=== PATIENT | female | born 1990 | race Caucasian/White ===

== ENCOUNTER → 2018-02-01 12:23 | Outpatient (CLI) | payer BC, SELFPAY ==
[2018-02-01 14:08] LABS: Free T3 2.7 pg/mL (2.18-3.98); Thyroid Stim Hormone (TSH) 4.79 uIU/mL (0.358-3.74)
== END ==
LOC: MFPLAB 12:23
PROVIDERS: Family Provider Family Medicine; PCP Family Medicine; Visit Provider Family Medicine
DX: E03.9 Hypothyroidism, unspecified (principal)
CPT/HCPCS: 36415; 84439; 84443; 84481

== ENCOUNTER 2021-11-14 14:18 | Emergency (ER) | payer BC, SELFPAY ==
[2021-11-14 14:19] VITALS: BP 136/90; PULSE 109; RESP 14; TEMP 36.2; O2SAT 100; BMI 27.3
--- NOTE | 2021-11-14 14:35 | EX.ED.DYSGE1 ---
HPI <KORY Leong - Last Filed: 11/14/21 18:47> History of Present Illness Chief Complaint: Abd Pain Narrative Narrative: 31-year-old female presents with left lower quadrant abdominal pain and diarrhea that started on 11/12. She states the pain is aching and is worse with eating. She has no fever, chills, nausea, or vomiting. She normally has 2-3 formed BMs a day but has had looser stools and sometimes has the urge to go but nothing comes out. Denies melena or hematochezia. She has no urinary symptoms. She was seen in urgent care and sent here for further evaluation. No abdominal surgical history. Of note she started Keflex for a forehead abscess a day prior to the onset of symptoms. PFSH <KORY Leong Last Filed: 11/14/21 18:47> [facility] Home Medications dextroamphetamine-amphetamine [Adderall 20 mg Tablet] 20 mg PO DAILY 07/18/17 [History Last Taken Unknown] fluoxetine 10 mg PO DAILY 07/18/17 [History Last Taken Unknown] levothyroxine 75 mcg PO DAILY 07/18/17 [History Last Taken Unknown] lorazepam 1 mg PO DAILY PRN PRN #10 tab 08/29/17 [Rx Last Taken Unknown] Allergy/AdvReac Type Severity Reaction Status Date / Time No Known Allergies Allergy Verified 11/14/21 14:21 Social History Smoking Status: Never smoker ROS <KORY Leong - Last Filed: 11/14/21 18:47> ROS ED ROS Narrative Constitutional: Negative for fever, chills, malaise. Eyes: Negative for visual change. ENT: Negative for sore throat, ear pain, rhinorrhea. CVS: Negative for palpitations, chest pain, syncope. Respiratory: Negative for shortness of breath, cough, orthopnea. GI: Positive for abdominal pain, diarrhea. Negative for nausea, vomiting, constipation, melena, hematochezia. : Negative for dysuria, hematuria or frequency. Neuro: Negative for headache, motor/sensory dysfunction. Skin: Negative for rash, abscess, or wound. Musc: Negative for joint pain, swelling, trauma. Heme: Negative for easy bruising, bleeding, lymphadenopathy. EXAM <KORY Leong Last Filed: 11/14/21 18:47> Physical Exam Narrative Exam Narrative: CONST: Patient sitting in no acute distress. EYES: Normal inspection. ENT: Normal inspection, moist mucous membranes. NECK: Normal inspection. RESP: No respiratory distress, CTAB. CVS: Regular rate and rhythm, no murmur, no gallop. ABD: Soft with mild tenderness in left lower quadrant, no guarding or rebound, nondistended, no hepatosplenomegaly. Back: Normal inspection, no CVA tenderness. SKIN: Color normal, no rash, warm, dry, intact. EXTREMITIES: Normal appearance, no pedal edema. NEURO: Oriented x4. PSYCH: Normal affect. Const Vital Signs: 11/14/21 14:19 11/14/21 16:24 11/14/21 18:40 Temperature 97.2 F L Temperature Source Temporal Pulse Rate 109 H 88 Respiratory Rate 14 14 Blood Pressure 136/90 H 116/74 Blood Pressure Mean 105 88 Pulse Ox 100 97 97 Oxygen Delivery Method Room Air Room Air Room Air <Dr. Martin Calzada MD - Last Filed: 11/14/21 14:49> Physical Exam Const Vital Signs: 11/14/21 14:19 11/14/21 16:24 11/14/21 18:40 Temperature 97.2 F L Temperature Source Temporal Pulse Rate 109 H 88 Respiratory Rate 14 14 Blood Pressure 136/90 H 116/74 Blood Pressure Mean 105 88 Pulse Ox 100 97 97 Oxygen Delivery Method Room Air Room Air Room Air MDM <KORY Leong - Last Filed: 11/14/21 18:47> [facility] Narrative Medical decision making narrative: Patient presents with abdominal pain and diarrhea that started after taking Keflex. She appears well and nontoxic. Afebrile and vital signs unremarkable. Her abdomen is soft with mild tenderness left lower quadrant but no peritoneal signs. Labs show white count of 17.6, BMP normal, urinalysis and hCG negative. Stool sample was sent for C. difficile testing but the lab states that has too much mucus. Unlikely C. difficile. Patient has only had 1 bowel movement while in the ER for several hours. She was taking the Keflex for an abscess on her face which looks like it has resolved and there is no longer cellulitis. I instructed her to stop the antibiotics as it was likely the cause of the diarrhea. She was agreeable and discharged in stable condition Lab Data Labs: Laboratory Results - last 24 hr 11/14/21 11/14/21 11/14/21 14:39 14:39 15:50 WBC 17.6 H RBC 4.58 Hgb 14.0 Hct 41.6 MCV 90.8 MCH 30.6 MCHC 33.7 RDW Std Deviation 40.1 RDW Coeff of Sharifa 12.1 Plt Count 235 MPV 11.2 Immature Gran % (Auto) 0.500 Neut % (Auto) 82.8 H Lymph % (Auto) 7.7 L Jewell % (Auto) 8.1 Eos % (Auto) 0.6 Baso % (Auto) 0.3 Absolute Neuts (auto) 14.5 H Absolute Lymphs (auto) 1.36 Nucleated RBC % 0 Sodium 139 Potassium 4.1 Chloride 108 H Carbon Dioxide 29.0 Anion Gap 2 L BUN 7 Creatinine 0.65 Estim Creat Clear Calc 105.64 Est GFR (MDRD) Af Amer 138 Est GFR (MDRD) Non-Af 114 BUN/Creatinine Ratio 10.7 Glucose 93 Calcium 9.1 Urine Color Yellow Urine Clarity Clear Urine pH 7.0 Ur Specific Drexel 1.010 Urine Protein Negative Urine Glucose (UA) Normal Urine Ketones Negative Urine Occult Blood Negative Urine Nitrite Negative Urine Bilirubin Negative Urine Urobilinogen Normal Ur Leukocyte Esterase 25 H Urine RBC 0 SEEN Urine WBC 0-5 SEEN Ur Squamous Epith Cells 0-5 SEEN Urine Bacteria RARE Urine Mucus 0 SEEN Urine Test Negative <Dr. Martin Calzada MD - Last Filed: 11/14/21 14:49> [facility] MDM Narrative Medical decision making narrative: Patient 31-year-old woman who lives in [place]. She is in [place] staying with her parents to celebrate her birthday this weekend. She was placed on cephalexin for abscess that was drained. She subsequently developed diarrhea. States there is an odor to her diarrhea. She has not noted any mucus or blood. She states that watery. She denies shaking chills. She denies documented fever. She denies nausea or vomiting. She complains of abdominal pain that is worse on the left side compared to the right. She denies dysuria, frequency, urgency or hematuria. Patient's abdomen is slightly tender left greater than right. Bowel sounds are slightly diminished. There is slight tympana. There is no evidence umbilical or inguinal hernia. Concern patient may have either bacterial induced diarrhea or symptoms under colitis. Blood work was obtained to assess severity if it is Pseudomonas enterocolitis as well as C. difficile. Lab Data Attestation: I reviewed the patient's lab results. Labs: Laboratory Results - last 24 hr 11/14/21 11/14/21 11/14/21 14:39 14:39 15:50 WBC 17.6 H RBC 4.58 Hgb 14.0 Hct 41.6 MCV 90.8 MCH 30.6 MCHC 33.7 RDW Std Deviation 40.1 RDW Coeff of Sharifa 12.1 Plt Count 235 MPV 11.2 Immature Gran % (Auto) 0.500 Neut % (Auto) 82.8 H Lymph % (Auto) 7.7 L Jewell % (Auto) 8.1 Eos % (Auto) 0.6 Baso % (Auto) 0.3 Absolute Neuts (auto) 14.5 H Absolute Lymphs (auto) 1.36 Nucleated RBC % 0 Sodium 139 Potassium 4.1 Chloride 108 H Carbon Dioxide 29.0 Anion Gap 2 L BUN 7 Creatinine 0.65 Estim Creat Clear Calc 105.64 Est GFR (MDRD) Af Amer 138 Est GFR (MDRD) Non-Af 114 BUN/Creatinine Ratio 10.7 Glucose 93 Calcium 9.1 Urine Color Yellow Urine Clarity Clear Urine pH 7.0 Ur Specific Drexel 1.010 Urine Protein Negative Urine Glucose (UA) Normal Urine Ketones Negative Urine Occult Blood Negative Urine Nitrite Negative Urine Bilirubin Negative Urine Urobilinogen Normal Ur Leukocyte Esterase 25 H Urine RBC 0 SEEN Urine WBC 0-5 SEEN Ur Squamous Epith Cells 0-5 SEEN Urine Bacteria RARE Urine Mucus 0 SEEN Urine Test Negative Discharge Plan Triage Chief Complaint: Abd Pain ED Provider: Kathy Guy Dx/Rx/DC Orders Clinical Impression: Diarrhea Instructions: Treating Diarrhea Prescriptions: No Action levothyroxine 75 MCG tablet 75 mcg PO DAILY RF: 0 dextroamphetamine-amphetamine [Adderall] 20 MG tablet 20 mg PO DAILY RF: 0 fluoxetine 10 MG capsule 10 mg PO DAILY RF: 0 lorazepam 1 MG tablet 1 mg PO DAILY PRN PRN (Reason: Anxiety) Qty: 10 RF: 0 Primary Care Provider: Jack Cardoso Referrals: Jack Cardoso MD [Primary Care Provider] - Activity Restrictions/Additional Instructions: Your diarrhea is likely caused by the antibiotics you are on. Please stop taking these. You can take Imodium [id number] as needed. Stay hydrated. Return for new or worsening symptoms. Disposition Disposition: Home, Self Care Discharge Date/Time: 11/14/21 18:43
[2021-11-14] MEDS: 0.9% Normal Saline 1,000 ML 999 ML IV (14:44)
[2021-11-14] MEDS: Ondansetron 4 MG/2 ML Vial IV (14:45)
[2021-11-14 14:46] LABS: Absolute Lymphocyte Count 1.36 X10^3/uL (0.83-4.51); Absolute Neutrophil Count 14.5 X10^3/uL (2.0-7.7); Basophil# 0.06 X10^3/uL; Basophil% 0.3 % (0-1); Eosinophil# 0.11 X10^3/uL; Eosinophils% 0.6 % (0-5); Hematocrit 41.6 % (37-47); Lymphocyte # 1.36 X10^3/ul (0.83-4.51); Lymphocyte % 7.7 % (19-41); Mean Corp Hgb Conc 33.7 g/dL (32-36); Mean Corpuscular Hgb 30.6 pg (27.0-32.0); Mean Corpuscular Volume 90.8 fL (81-99); Mean Platelet Vol. 11.2 fl (6.2-12.0); Monocyte# 1.42 X10^3/uL; Monocyte% 8.1 % (0-10); NRBC Flagged by Analyzer 0 % (0-5); Neutrophil # 14.52 X10^3/uL (2.7-7.7); Neutrophil % 82.8 % (47-70); Platelet Count 235 K/mm3 (150-450); RBC Distribution Width CV 12.1 % (11.6-14.6); RBC Distribution Width SD 40.1 fl (35.1-43.9); Red Blood Count 4.58 M/mm3 (4.2-5.4); White Blood Count 17.6 K/mm3 (4.4-11.0)
[2021-11-14 15:00] LABS: Anion Gap 2 (5-15); BUN 7 mg/dL (7-18); BUN/Creat Ratio 10.7 RATIO (10-20); Calcium,Total 9.1 mg/dL (8.5-10.1); Chloride 108 mmol/L (98-107); Creatinine, Serum 0.65 mg/dL (0.55-1.02); EST Glomerular Filtration Rate 114 mL/min (>60); Est Glom Filt Rate - Afr Amer 138 mL/min (>60); Estimated Creatinine Clearance 105.64 ml/min; Glucose 93 mg/dL (74-106); Potassium 4.1 mmol/L (3.5-5.1); Sodium Level 139 mmol/L (136-145)
[2021-11-14 15:55] LABS: Mucous, Urine 0 SEEN /hpf (<or=2+); Red Blood Cells-Urine 0 SEEN /hpf (0-5)
[2021-11-14] MEDS: Ketorolac 15 MG/ML Vial IV (15:57)
[2021-11-14 16:02] LABS: Color, Urine Yellow (Yellow); Glucose, Dipstick Normal (Normal); Ketone-Dipstick Negative (Negative); Leukocyte Esterase-Dipstick 25 /ul (Negative); Nitrite-Dipstick Negative (Negative); Occult Blood-Urine Negative /ul (Negative); Protein-Dipstick Negative (Negative); Urine Bilirubin Dipstick Negative (Negative); Urine Clarity Clear (Clear); Urine Urobilinogen Normal (Normal)
[2021-11-14 16:08] LABS: Internal QC Validated? YES +Cl - CLEAR BKGD; Pregnancy, Urine Negative Negative
[2021-11-14 16:22] LABS: Bacteria RARE /hpf (None Seen); Squamous Epithelial Cells - UA 0-5 SEEN /hpf (5-10); White Blood Cells 0-5 SEEN /hpf (0-5)
[2021-11-14 16:24] VITALS: BP 116/74; PULSE 88; RESP 14; O2SAT 97
[2021-11-14 18:40] VITALS: O2SAT 97
== END 2021-11-14 18:43 | disposition home or self-care (01) ==
PROVIDERS: Emergency Provider Physician Assistant; PCP Family Medicine; Visit Provider Physician Assistant
DX: R19.7 Diarrhea, unspecified (principal); R10.32 Left lower quadrant pain
CPT/HCPCS: 80048; 81001; 81025; 85025; 87493; 96361; 96374; 96375; 99283; J7030; A4216; J2405

== ENCOUNTER 2025-09-19 14:57 | Emergency (ER) | payer OTHER, SELFPAY ==
[2025-09-19 15:00] VITALS: BP 146/96; PULSE 99; RESP 18; TEMP 36.9; O2SAT 100; BMI 16.2
--- NOTE | 2025-09-19 15:26 | EKG12_ITS ---
Test Reason : GENERAL Blood Pressure : */* mmHG Vent. Rate : 85 BPM Atrial Rate : 85 BPM P-R Int : 122 ms QRS Dur : 76 ms QT Int : 376 ms P-R-T Axes : 55 59 44 degrees QTcB Int : 447 ms Normal sinus rhythm Nonspecific ST abnormality Abnormal ECG Confirmed by Sabino Rodríguez ([id number]), managing editor ASHTYN WALKER ([id number]) on 09/25/2025 9:03:34 AM Referred By: Confirmed By: Sabino Rodríguez
--- NOTE | 2025-09-19 15:26 | CT_ITS ---
PROCEDURE: CT BRAIN/HEAD WITHOUT CONTRAST; CTA HEAD AND NECK W/ CONTRAST 09/19/2025 REASON FOR EXAM: MAO TECHNIQUE: Procedure Code: CTBR; CTCTA.HDNCK Modality: CT Procedure: BRAIN/HEAD WITHOUT CONTRAST; CTA HEAD AND NECK W/ CONTRAST Coronal and Sagittal reconstructions were provided. 3D post processing was performed. 96 cc of Isovue 370 intravenous contrast was administered. One or more dose reduction techniques were used (e.g., Automated exposure control, adjustment of the mA and/or kV according to patient size, use of iterative reconstruction technique. RADIATION DOSE SUMMARY: DLP: 1412.38 mGycm COMPARISON: None. FINDINGS: CTA HEAD: Patent intracranial arterial vasculature. No large vessel occlusion, flow- limiting stenosis, saccular aneurysm, or vascular malformation identified. origin of the right DIFFUSION OPERATOR, an anatomic variant. CTA NECK: Aberrant right subclavian artery with retroesophageal course, anatomic variant. Bilateral cervical carotid and codominant vertebral arteries are patent. No saccular aneurysm. There is short-segment mild-moderate narrowing of the distal left vertebral artery V3 segment, possibly representing a chronic short-segment dissection or intramural hematoma. Vessel caliber reconstitutes distally at the V4 segment and then becomes slightly hypoplastic at the distal left intradural segment compared to the right. NONCONTRAST CT HEAD: No acute intracranial hemorrhage, extra-axial collection, mass effect or evidence of acute infarct. Ventricles and subarachnoid spaces are normal in size. Orbital contents are unremarkable. Intact skull base and calvarium. Clear paranasal sinuses and mastoid air cells. CT/Brain/Head without Contrast IMPRESSION: 1. No acute intracranial abnormality. 2. No large vessel arterial occlusion or hemodynamically significant stenosis. 3. No aneurysm. 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 Reading Location: [id number]
--- NOTE | 2025-09-19 15:28 | CT_ITS ---
PROCEDURE: CT BRAIN/HEAD WITHOUT CONTRAST; CTA HEAD AND NECK W/ CONTRAST 09/19/2025 REASON FOR EXAM: MAO TECHNIQUE: Procedure Code: CTBR; CTCTA.HDNCK Modality: CT Procedure: BRAIN/HEAD WITHOUT CONTRAST; CTA HEAD AND NECK W/ CONTRAST Coronal and Sagittal reconstructions were provided. 3D post processing was performed. 96 cc of Isovue 370 intravenous contrast was administered. One or more dose reduction techniques were used (e.g., Automated exposure control, adjustment of the mA and/or kV according to patient size, use of iterative reconstruction technique. RADIATION DOSE SUMMARY: DLP: 1412.38 mGycm COMPARISON: None. FINDINGS: CTA HEAD: Patent intracranial arterial vasculature. No large vessel occlusion, flow- limiting stenosis, saccular aneurysm, or vascular malformation identified. origin of the right DEBRANDER, an anatomic variant. CTA NECK: Aberrant right subclavian artery with retroesophageal course, anatomic variant. Bilateral cervical carotid and codominant vertebral arteries are patent. No saccular aneurysm. There is short-segment mild-moderate narrowing of the distal left vertebral artery V3 segment, possibly representing a chronic short-segment dissection or intramural hematoma. Vessel caliber reconstitutes distally at the V4 segment and then becomes slightly hypoplastic at the distal left intradural segment compared to the right. NONCONTRAST CT HEAD: No acute intracranial hemorrhage, extra-axial collection, mass effect or evidence of acute infarct. Ventricles and subarachnoid spaces are normal in size. Orbital contents are unremarkable. Intact skull base and calvarium. Clear paranasal sinuses and mastoid air cells. CT/CTA Head AND Neck W/ Contrast IMPRESSION: 1. No acute intracranial abnormality. 2. No large vessel arterial occlusion or hemodynamically significant stenosis. 3. No aneurysm. 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 Reading Location: [id number]
[2025-09-19] MEDS: 0.9% Normal Saline (1000mL) 1,000 ML 1000 ML IV (15:34)
[2025-09-19] MEDS: DiphenhydrAMINE 50 MG/ML Syringe 25 MG IV (15:35)
[2025-09-19 15:40] VITALS: BP 138/88; BP 139/78; BP 139/88; PULSE 94; PULSE 97
[2025-09-19 15:44] LABS: Hematocrit 39.6 % (37-47); Hemoglobin 13.8 g/dL (12.0-15.0); Immature Granulocytes Count 0.050 X10^3/uL (0.0-0.0); Mean Corp Hgb Conc 34.8 g/dL (32-36); Mean Corpuscular Volume 87.8 fL (81-99); Mean Platelet Vol. 11.3 fl (6.2-12.0); NRBC Flagged by Analyzer 0 % (0-5); Platelet Count 221 K/mm3 (150-450); RBC Distribution Width CV 13.2 % (11.6-14.6); RBC Distribution Width SD 42.7 fl (35.1-43.9); Red Blood Count 4.51 M/mm3 (4.2-5.4); White Blood Count 12.3 K/mm3 (4.4-11.0)
--- NOTE | 2025-09-19 15:46 | EX.ED.DYSGE1 ---
HPI History of Present Illness Chief Complaint: Syncope Narrative Narrative: Chief complaint and HPI: 34-year-old female with past medical history of hypothyroidism and ADHD on Adderall presents for evaluation of headache, insomnia, and suspected syncopal episode. Patient states she has intermittent episodes of insomnia. States she has been awake since 9:30 AM on 09/18/2025. Patient states around 1 PM today she started develop a right sided headache. Headache has been gradual in onset. Not associated with exertion. She describes it as sharp. Some mild light sensitivity. Denies any neck pain. Patient states she met up with her sister at the gas station to get her hair done when her sister went inside to give her Excedrin as patient had not taken anything for her headache. Sister states when she returned back to the patient's truck she appeared asleep. Sister states however she was not easily arousable for a couple minutes. States there may have been some mild shaking. Patient awoke without any confusion or postictal phase. She denies any oral trauma for bladder/bowel incontinence. She has no history of seizures. Patient states she just generally feels fatigued and weak. She denies any fever, chills, nausea, vomiting, URI symptoms, shortness of breath, chest pain, abdominal pain, dysuria, numbness/tingling, focal weakness or deficit. States at baseline she has a poor diet with little water intake. Review of systems: See HPI Medications: As listed on the chart Allergies: As listed on the chart PFSH: Per chart Vital signs: As listed on the chart. Reviewed. Physical exam: Gen: A&O x3, NAD Head: Normocephalic, atraumatic Eyes: No sclera icterus, conjunctiva clear, PERRL, EOMI ENT: TMs clear BL, moist mucous membranes, posterior oropharynx unremarkable, uvula midline, tonsils not enlarged, no tonsillar exudates, no facial asymmetry Neck: Trachea midline,Full ROM, No meningismus CV: RRR, no murmurs, no peripheral edema Resp: Lungs CTA BL, no w/r/c GI: Abd soft, non-distended, non-tender, no r/r/g Musc: Full ROM, no deformity, strength +5/5 in all extremities Skin: Warm, dry, intact Neuro: Alert, oriented, grossly intact, sensation intact, no focal deficits Psych: Cooperative, appropriate mood and affect PFSH PFS Medical History no medical history Home Medications ?Medication ?Instructions ?Recorded ?Last Taken ?Type dextroamphetamine-amphetamine 20 20 mg PO DAILY 07/18/17 Unknown History mg tablet (Adderall) duloxetine 60 mg capsule,delayed 60 mg PO DAILY 09/19/25 Unknown History release (Cymbalta) pantoprazole 40 mg tablet,delayed 40 mg PO DAILY 09/19/25 Unknown History release (Protonix) thyroid (pork) 90 mg tablet 90 mg PO DAILY 09/19/25 Unknown History (Adthyza) Allergy/AdvReac Type Severity Reaction Status Date / Time No Known Allergies Allergy Verified 09/19/25 15:03 Family History no significant family his Surgical History no surgical history Social History Smoking Status: Never smoker EXAM Physical Exam Const Vital Signs: 09/19/25 15:00 09/19/25 15:40 09/19/25 15:52 Temperature 98.4 F Temperature Source Oral Pulse Rate 99 Pulse Rate [Lying] 94 Pulse Rate [Sitting (for 1 minute prior to obtaining)] 94 Pulse Rate [Standing (for 1 minute prior to obtaining)] 97 Respiratory Rate 18 Respiratory Effort Normal Non-Labored Blood Pressure 146/96 H Blood Pressure [Lying] 139/78 H Blood Pressure [Sitting (for 1 minute prior to obtaining)] 138/88 H Blood Pressure [Standing (for 1 minute prior to obtaining)] 139/88 H Blood Pressure Mean 112 Blood Pressure Mean [Lying] 98 Blood Pressure Mean [Sitting (for 1 minute prior to obtaining)] 104 Blood Pressure Mean [Standing (for 1 minute prior to obtaining)] 105 Pulse Ox 100 Oxygen Delivery Method Room Air 09/19/25 16:00 09/19/25 17:00 Temperature Temperature Source Pulse Rate 88 78 Pulse Rate [Lying] Pulse Rate [Sitting (for 1 minute prior to obtaining)] Pulse Rate [Standing (for 1 minute prior to obtaining)] Respiratory Rate 16 Respiratory Effort Blood Pressure 134/85 H 138/88 H Blood Pressure [Lying] Blood Pressure [Sitting (for 1 minute prior to obtaining)] Blood Pressure [Standing (for 1 minute prior to obtaining)] Blood Pressure Mean 101 104 Blood Pressure Mean [Lying] Blood Pressure Mean [Sitting (for 1 minute prior to obtaining)] Blood Pressure Mean [Standing (for 1 minute prior to obtaining)] Pulse Ox 100 99 Oxygen Delivery Method MDM MDM MDM Narrative Medical decision making narrative: 34-year-old female with past medical history of hypothyroidism and ADHD on Adderall presents for evaluation of headache, insomnia, and suspected syncopal episode. Patient states she has intermittent episodes of insomnia. States she has been awake since 9:30 AM on 09/18/2025. Patient states around 1 PM today she started develop a right sided headache. Headache has been gradual in onset. Not associated with exertion. She describes it as sharp. Some mild light sensitivity. Denies any neck pain. Patient states she met up with her sister at the gas station to get her hair done when her sister went inside to give her Excedrin as patient had not taken anything for her headache. Sister states when she returned back to the patient's truck she appeared asleep. Sister states however she was not easily arousable for a couple minutes. States there may have been some mild shaking. Patient awoke without any confusion or postictal phase. She denies any oral trauma for bladder/bowel incontinence. She has no history of seizures. Patient states she just generally feels fatigued and weak otherwise denies any symptoms such as infectious or neurological symptoms. On presentation, patient no acute distress. Vitals are stable other than mild hypertension. Differential diagnosis includes but is not limited to insomnia, migraine, tension headache, electrolyte abnormality, dehydration, thyroid disease, substance abuse, , suspect less likely intracranial abnormality. NS bolus ordered. Will give migraine cocktail with morphine instead of Toradol until imaging of the head is obtained. Patient was given Benadryl, Reglan, morphine. Laboratory workup ordered including CT head and CTA head and neck. Orthostatic vital signs negative. CBC with mild leukocytosis of 12.3. No anemia. D-dimer unremarkable. CMP unremarkable except for transaminitis. Patient has an AST of 35 and ALT of 136. Not having any abdominal pain. Troponin unremarkable. TSH elevated at 7.140. Free T4 low at 0.7. Patient will need to follow-up with her doctor to possibly have her Synthroid increased. Serum negative. UA is positive for blood and nitrites however negative for WBC, bacteria. Patient not endorsing any UTI symptoms. Will send for culture and not treat at this time. I did speak with the patient, she is currently on her menstrual cycle which explains the blood. CT head and CTA head and neck shows no acute intracranial abnormality. No LVO or significant stenosis. No aneurysm. 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 Urine drug screen positive for opiates and amphetamines. Patient does take Adderall. Given the readings from the CTA head and neck I did consult neurosurgery, Dr. Benitez at [facility]. Patient has no reason to have a dissection or intramural hematoma. Dr. Benitez looked at the imaging. In his personal review, the imaging appears normal however recommended reaching out to neurology given the read. Nothing from a neurosurgical surgical standpoint. Given we do not have neurology and neither does help in the hospital, will reach out to [facility]. I spoke with the neurologist at [facility], Dr. Salazar. She reviewed the imaging. Suspect this is normal anatomy for the patient, no concern for dissection or intramural hematoma. On reevaluation, patient's headache has resolved. She states she is ready to fall asleep. She was updated of all of her results including her hypothyroidism. She states that they currently just adjusted her medication 4 weeks ago. She will let her primary care physician know that she needs to have an increase. Patient was educated to return back to ED symptoms change or worsen. Motrin and Tylenol if headache returns. Unclear if patient actually had a syncopal episode versus falling asleep. Patient stable to discharge home. EKG: Interpreted by me/EM physician: EKG shows normal sinus rhythm. Heart rate 85. No QTc prolongation. Diagnostic: Interpreted by me/EM physician:Chest x-ray without pneumonia, effusion, cardiomegaly, pneumothorax. Radiology in agreement. Impression: 1. Headache 2. Insomnia 3 hypothyroidism. 4. Possible syncope Lab Data Labs: Laboratory Results - last 24 hr 09/19/25 09/19/25 14:50 16:15 WBC 12.3 H RBC 4.51 Hgb 13.8 Hct 39.6 MCV 87.8 MCH 30.6 MCHC 34.8 RDW Std Deviation 42.7 RDW Coeff of Sharifa 13.2 Plt Count 221 MPV 11.3 Immature Gran % (Auto) 0.400 Neut % (Auto) 78.9 H Lymph % (Auto) 13.3 L [place] % (Auto) 5.8 Eos % (Auto) 1.1 Baso % (Auto) 0.5 Absolute Neuts (auto) 9.7 H Absolute Lymphs (auto) 1.64 Nucleated RBC % 0 D-Dimer Quant (PE/DVT) 0.27 Sodium 136 Potassium 3.5 Chloride 100 Carbon Dioxide 23.2 Anion Gap 12 BUN 8 Creatinine 0.68 L Estim Creat Clear Calc 77.73 Est GFR (MDRD) Non-Af 118 BUN/Creatinine Ratio 12.0 Glucose 136 H Calcium 9.1 Magnesium 1.9 Total Bilirubin 0.35 AST 35 H ALT 136 H Alkaline Phosphatase 115 H Troponin T High Sens < 6 Total Protein 6.8 Albumin 4.2 Globulin 2.6 Albumin/Globulin Ratio 1.6 TSH 7.140 H Free T4 0.70 L Serum , Qual NEGATIVE Urine Color Red Urine Clarity Cloudy Urine pH 7.0 Ur Specific Bude 1.010 Urine Protein 100 H Urine Glucose (UA) Normal Urine Ketones Negative Urine Occult Blood 250 H Urine Nitrite Positive H Urine Bilirubin Negative Urine Urobilinogen Normal Ur Leukocyte Esterase 100 H Urine RBC > 100 SEEN Urine WBC 0-5 SEEN Ur Squamous Epith Cells 0 SEEN Urine Bacteria 0 SEEN Urine Mucus 0 SEEN Urine Opiates Screen PRESUMPTIVE POSITIVE U Buprenorphine Qual NEGATIVE Ur Oxycodone Screen NEGATIVE Urine Methadone Screen NEGATIVE Urine Fentanyl Screen NEGATIVE Ur Barbiturates Screen NEGATIVE Ur Phencyclidine Scrn NEGATIVE Ur Amphetamines Screen PRESUMPTIVE POSITIVE U Benzodiazepines Scrn NEGATIVE Urine Cocaine Screen NEGATIVE U Cannabinoids Screen NEGATIVE Radiography Diagnostic Testing: Clinical Impression(s) from Imaging Studies Brain CT 09/19/25 15:26 IMPRESSION: 1. No acute intracranial abnormality. 2. No large vessel arterial occlusion or hemodynamically significant stenosis. 3. No aneurysm. 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 Reading Location: [facility] Head/Neck CTA 09/19/25 15:28 IMPRESSION: 1. No acute intracranial abnormality. 2. No large vessel arterial occlusion or hemodynamically significant stenosis. 3. No aneurysm. 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 Reading Location: [facility] Chest X-Ray 09/19/25 15:55 IMPRESSION: Unremarkable. [facility] Triage Chief Complaint: Syncope ED Provider: Tomer Maurer Dx/Rx/DC Orders Clinical Impression: Headache, Insomnia, Hypothyroidism Instructions: Self-Care for Headaches, ED Hypothyroidism, ED Insomnia Prescriptions: No Action dextroamphetamine-amphetamine [Adderall] 20 MG tablet 20 mg PO DAILY duloxetine [Cymbalta] 60 mg capsule,delayed release(DR/EC) 60 mg PO DAILY pantoprazole [Protonix] 40 mg tablet,delayed release (DR/EC) 40 mg PO DAILY thyroid (pork) [Adthyza] 90 mg tablet 90 mg PO DAILY Primary Care Provider: Care Physician,No Primary Referrals: Vic Cardoso MD [Med Staff - Appeals Analyst, Family Practice] - 3-5 Days Activity Restrictions/Additional Instructions: Your thyroid function was a little low here today in the emergency department, make sure that you get your medicines re-adjusted by your primary care physician. Return back to ED if symptoms change or worsen. Recommend Tylenol and Motrin as needed if headache returns. Make sure he gets sleep. Print Language: Faroese Disposition Disposition: Home, Self Care
[2025-09-19 15:54] LABS: Internal QC Validated? YES +Cl - CLEAR BKGD; Pregnancy, Serum, hCG Quali. NEGATIVE Negative
--- NOTE | 2025-09-19 15:55 | RAD_ITS ---
PROCEDURE: CHEST 1 VIEW (PORTABLE) 09/19/2025 REASON FOR EXAM: SYNCOPE TECHNIQUE: Frontal view of the chest. FINDINGS: Normal cardiac silhouette and pulmonary vasculature. No evidence of infiltrate, effusion, vascular congestion, mass, or nodule. No pneumothorax. Mediastinum appears normal. No hilar abnormality. RAD/Chest 1 View (Portable) IMPRESSION: Unremarkable. Reading Location: [facility]
[2025-09-19 15:57] LABS: D-Dimer Quantitative (DVT/PE) 0.27 FEU/ug/m (0.27-0.49)
[2025-09-19 16:00] VITALS: BP 134/85; PULSE 88; O2SAT 100
[2025-09-19 16:18] LABS: AST(SGOT) 35 U/L (<=31); Alanine Aminotransfer ALT/SGPT 136 U/L (<=34); Albumin, Serum 4.2 g/dL (3.5-5.0); Alkaline Phosphatase 115 U/L (35-104); Anion Gap 12 (7-18); BUN 8 mg/dL (4-19); BUN/Creat Ratio 12.0 RATIO (10-20); Calcium,Total 9.1 mg/dL (7.6-11.0); Carbon Dioxide 23.2 mmol/L (20.0-29.0); Chloride 100 mmol/L (96-106); Estimated Creatinine Clearance 77.73 ml/min (50-250); Globulin 2.6 g/dL (2.2-4.2); Glucose 136 mg/dL (70-99); Magnesium 1.9 mg/dL (1.5-2.2); Potassium 3.5 mmol/L (3.5-5.1); Troponin T High Sensitivity < 6 ng/L (<=14)
[2025-09-19 16:19] LABS: Color, Urine Red (Yellow); Glucose, Dipstick Normal (Normal); Ketone-Dipstick Negative (Negative); Leukocyte Esterase-Dipstick 100 /ul (Negative); Nitrite-Dipstick Positive (Negative); Occult Blood-Urine 250 /ul (Negative); Protein-Dipstick 100 mg/dl (Negative); Specific Gravity, Urine 1.010 (1.002-1.030); Urine Bilirubin Dipstick Negative (Negative)
[2025-09-19 16:20] LABS: Mucous, Urine 0 SEEN /hpf (<or=2+); Red Blood Cells-Urine > 100 SEEN /hpf (0-5); Squamous Epithelial Cells - UA 0 SEEN /hpf (5-10)
[2025-09-19 16:57] LABS: Barbiturate Urine NEGATIVE (< 200 ng/mL); Benzodiazepine Urine NEGATIVE (< 200 ng/mL); PCP Urine NEGATIVE (< 25 ng/mL); THC Urine NEGATIVE (< 50 ng/mL)
[2025-09-19 17:00] VITALS: BP 138/88; PULSE 78; RESP 16; O2SAT 99
[2025-09-19 18:30] VITALS: BP 134/78; PULSE 64; RESP 18; TEMP 36.1; O2SAT 99
== END 2025-09-19 18:32 | disposition home or self-care (01) ==
PROVIDERS: Emergency Provider Surgery; Visit Provider Surgery
DX: R55 Syncope and collapse (principal); G47.00 Insomnia, unspecified; E03.9 Hypothyroidism, unspecified; R51.9 Headache, unspecified; Z79.899 Other long term (current) drug therapy
CPT/HCPCS: 70450; 70496; 70498; 71045; 80053; 80307; 81001; 83735; 84439; 84443; 84484; 84703; 85025; 85379; 87086; 93005; 96361; 96374; 96375; 99285; Q9967